=== PATIENT | male | born 1955 | race Caucasian/White ===

== ENCOUNTER 2016-12-14 08:47 | Outpatient (CLI) | payer OTHER | END 2016-12-14 08:48 | disposition home or self-care (01) | DX: R73.01 Impaired fasting glucose (principal); I25.10 Atherosclerotic heart disease of native coronary artery without angina pectoris; I10 Essential (primary) hypertension; M51.86 Other intervertebral disc disorders, lumbar region ==

== ENCOUNTER 2017-07-27 09:02 | Outpatient (CLI) | payer OTHER ==
[2017-07-27 09:51] LABS: ALBUMIN/GLOBULIN RATIO 1.3 (1.0-2.2); CALCIUM 9.4 mg/dL (8.5-10.3); CREATININE 0.7 mg/dL (0.6-1.2); POTASSIUM 3.8 mmol/L (3.5-5.0); TOTAL PROTEIN 7.5 g/dL (6.7-8.2)
[2017-07-27 09:57] LABS: HEMOGLOBIN A1C 0.55 g/dL
== END 2017-07-27 09:03 | disposition home or self-care (01) ==
LOC: LAB 09:02
PROVIDERS: ATTEND Family Medicine
DX: K76.0 Fatty (change of) liver, not elsewhere classified (principal); R73.01 Impaired fasting glucose; I25.10 Atherosclerotic heart disease of native coronary artery without angina pectoris; I10 Essential (primary) hypertension; E78.9 Disorder of lipoprotein metabolism, unspecified; M51.86 Other intervertebral disc disorders, lumbar region; Z12.5 Encounter for screening for malignant neoplasm of prostate
CPT/HCPCS: 36415; 80053; 83036; 84153

== ENCOUNTER 2018-10-09 08:47 | Outpatient (CLI) | payer OTHER ==
[2018-10-09 09:27] LABS: BASOPHILS % (AUTO) 0.2 %; EOSINOPHILS # (AUTO) 0.1 10^3/uL (0.0-0.7); EOSINOPHILS % (AUTO) 3.2 %; HGB - HEMOGLOBIN 14.1 g/dL (14.0-18.0); LYMPHOCYTES % (AUTO) 42.2 %; MEAN CORPUSCULAR HEMOGLOBIN 35.8 pg (27.0-31.0); MEAN CORPUSCULAR HGB CONC 34.5 g/dL (32.0-36.0); MEAN CORPUSCULAR VOLUME 103.8 fL (80.0-94.0); MEAN PLATELET VOLUME 7.9 fL (7.4-11.4); MONOCYTES # (AUTO) 0.4 10^3/uL (0.0-1.0); MONOCYTES % (AUTO) 9.2 %; NEUTROPHILS # (AUTO) 2.1 10^3/uL (1.5-6.6); NEUTROPHILS % (AUTO) 45.2 %; PLT - PLATELET COUNT 152 10^3/uL (130-450); RED BLOOD COUNT 3.92 10^6/uL (4.70-6.10); WHITE BLOOD COUNT 4.7 x10^3/uL (4.8-10.8)
[2018-10-09 09:50] LABS: ALBUMIN 4.3 g/dL (3.2-5.5); ALBUMIN/GLOBULIN RATIO 1.4 (1.0-2.2); ALKALINE PHOSPHATASE 63 IU/L (42-121); ALT ALANINE AMINOTRANSFERASE 49 IU/L (10-60); AST ASPARTATE AMINOTRANSFERASE 53 IU/L (10-42); BILIRUBIN,TOTAL 1.1 mg/dL (0.2-1.0); BUN - BLOOD UREA NITROGEN 9 mg/dL (6-20); CALCIUM 9.1 mg/dL (8.5-10.3); CARBON DIOXIDE - CO2 30 mmol/L (21-32); CHLORIDE 100 mmol/L (101-111); CHOL/HDL RATIO 1.7 (<5.0); CHOLESTEROL 155 mg/dL; CREATININE 0.9 mg/dL (0.6-1.2); GFR - MDRD 86 (>89); GLUCOSE 112 mg/dL (70-100); HDL CHOLESTEROL 89 mg/dL; LDL CHOLESTEROL,CALCULATED 30 mg/dL; LDL/HDL RATIO 0.3 (<3.6); SODIUM 139 mmol/L (135-145); TOTAL PROTEIN 7.3 g/dL (6.7-8.2); VLDL CHOLESTEROL 36 mg/dL
== END 2018-10-09 08:48 | disposition home or self-care (01) ==
LOC: LAB 08:47
PROVIDERS: ATTEND Physician Assistant Medical
DX: Z00.00 Encounter for general adult medical examination without abnormal findings (principal); I10 Essential (primary) hypertension; K76.0 Fatty (change of) liver, not elsewhere classified; E78.9 Disorder of lipoprotein metabolism, unspecified; Z12.5 Encounter for screening for malignant neoplasm of prostate; J01.90 Acute sinusitis, unspecified
CPT/HCPCS: 36415; 80053; 80061; 83721; 84153; 84443; 85025

== ENCOUNTER 2020-07-29 08:33 | Outpatient (CLI) | payer OTHER ==
[2020-07-29 09:06] LABS: BASOPHILS % (AUTO) 0.5 %; EOSINOPHILS # (AUTO) 0.1 10^3/uL (0.0-0.7); EOSINOPHILS % (AUTO) 3.8 %; HGB - HEMOGLOBIN 13.2 g/dL (14.0-18.0); LYMPHOCYTES # (AUTO) 1.7 10^3/uL (1.5-3.5); LYMPHOCYTES % (AUTO) 47.5 %; MEAN CORPUSCULAR HEMOGLOBIN 36.2 pg (27.0-31.0); MEAN CORPUSCULAR HGB CONC 33.9 g/dL (32.0-36.0); MEAN CORPUSCULAR VOLUME 106.6 fL (80.0-94.0); MEAN PLATELET VOLUME 8.9 fL (7.4-11.4); MONOCYTES # (AUTO) 0.4 10^3/uL (0.0-1.0); MONOCYTES % (AUTO) 11.8 %; NEUTROPHILS # (AUTO) 1.3 10^3/uL (1.5-6.6); NEUTROPHILS % (AUTO) 36.4 %; PLT - PLATELET COUNT 141 10^3/uL (130-450); RED BLOOD COUNT 3.65 10^6/uL (4.70-6.10); RED CELL DISTRIBUTION WIDTH 13.3 % (12.0-15.0); WHITE BLOOD COUNT 3.6 x10^3/uL (4.8-10.8)
[2020-07-29 09:27] LABS: ALBUMIN/GLOBULIN RATIO 1.3 (1.0-2.2); ALKALINE PHOSPHATASE 48 IU/L (42-121); ALT ALANINE AMINOTRANSFERASE 87 IU/L (10-60); AST ASPARTATE AMINOTRANSFERASE 86 IU/L (10-42); BILIRUBIN,TOTAL 1.1 mg/dL (0.2-1.0); BUN - BLOOD UREA NITROGEN 7 mg/dL (6-20); CALCIUM 9.1 mg/dL (8.5-10.3); CARBON DIOXIDE - CO2 26 mmol/L (21-32); CHLORIDE 100 mmol/L (101-111); CHOL/HDL RATIO 1.8 (<5.0); CHOLESTEROL 192 mg/dL; CREATININE 0.9 mg/dL (0.6-1.2); GLUCOSE 129 mg/dL (70-100); HDL CHOLESTEROL 106 mg/dL; LDL CHOLESTEROL,CALCULATED 52 mg/dL; LDL/HDL RATIO 0.5 (<3.6); SODIUM 137 mmol/L (135-145); TOTAL PROTEIN 7.2 g/dL (6.7-8.2); VLDL CHOLESTEROL 34 mg/dL
[2020-07-29 11:53] LABS: HEMOGLOBIN A1c% 5.8 % (4.27-6.07)
== END 2020-07-29 08:34 | disposition home or self-care (01) ==
LOC: LAB 08:33
PROVIDERS: ATTEND Family Medicine
DX: R73.01 Impaired fasting glucose (principal); I10 Essential (primary) hypertension; E78.5 Hyperlipidemia, unspecified
CPT/HCPCS: 36415; 80053; 80061; 83036; 83721; 84153; 84443; 85025

== ENCOUNTER 2020-08-26 10:57 | Outpatient (CLI) | payer OTHER ==
[2020-08-26 11:25] LABS: ALBUMIN 3.8 g/dL (3.2-5.5); ALBUMIN/GLOBULIN RATIO 1.2 (1.0-2.2); BILIRUBIN,TOTAL 0.6 mg/dL (0.2-1.0); CALCIUM 9.2 mg/dL (8.5-10.3); CREATININE 0.8 mg/dL (0.6-1.2); TOTAL PROTEIN 7.1 g/dL (6.7-8.2)
== END 2020-08-26 10:58 | disposition home or self-care (01) ==
LOC: LAB 10:57
PROVIDERS: ATTEND Family Medicine
DX: R79.89 Other specified abnormal findings of blood chemistry (principal); F10.20 Alcohol dependence, uncomplicated
CPT/HCPCS: 36415; 80053; 82105

== ENCOUNTER 2020-09-07 09:05 | Outpatient (CLI) | payer OTHER ==
--- NOTE | 2020-09-07 11:55 | Ultrasound Report ---
PROCEDURE: Abdomen Limited INDICATIONS: FATTY LIVER DISEASE, ALCOHOLISM TECHNIQUE: Real-time scanning was performed of the abdominal and retroperitoneal organs, with image documentatio n. COMPARISON: 04/20/2015 FINDINGS: Liver: Liver is slightly elongated measuring 17.0 cm in length, somewhat increased compared to the p rior study. Hepatic echotexture is mildly hyperechoic and heterogeneous. A 9 mm cyst is present anter iorly in the left hepatic lobe, stable. No new solid masses. Gallbladder: The gallbladder is normal without stones, sludge, wall thickening, or pericholecystic fl uid. Biliary ducts: Intrahepatic bile ducts are non-dilated. Extrahepatic bile duct caliber measures 4 m m. Normal is 6-7 mm or less in diameter, or 10 mm or less post-cholecystectomy. Pancreas: The pancreas is diminutive and mildly heterogeneous, similar compared to the prior study. N o ductal dilatation. The tail is obscured by bowel gas. Kidneys: Right kidney measures 11.2 cm long. No hydronephrosis or nephrolithiasis. No solid masses . Miscellaneous: No free abdominal fluid. IMPRESSION: 1. Heterogeneous hepatic echotexture may indicate steatosis or other intrinsic liver disease. The cherelle er has a slightly enlarged since the prior study but remains similarly heterogeneous in parenchymal e chotexture. 2. Heterogeneous and diminutive pancreas, again, nonspecific. Reviewed by: Meredith Hamilton MD on 09/07/2020 11:53 AM PST Approved by: Meredith Hamilton MD on 09/07/2020 11:53 AM PST Station ID: [id number]
== END 2020-09-07 09:06 | disposition home or self-care (01) ==
LOC: DI 09:05
PROVIDERS: ATTEND Family Medicine
DX: K76.0 Fatty (change of) liver, not elsewhere classified (principal); F10.20 Alcohol dependence, uncomplicated
CPT/HCPCS: 76705

== ENCOUNTER 2020-10-22 13:29 | Outpatient (CLI) | payer OTHER ==
--- NOTE | 2020-10-22 14:57 | XRAY Report ---
PROCEDURE: Hand 3 View LT INDICATIONS: PAIN IN LEFT THUMB TECHNIQUE: 3 views of the hand(s) acquired. COMPARISON: None FINDINGS: Bones: No fractures or dislocations. There is asymmetric joint space loss, marginal spurring, and mi nor subluxation at the first MCP joint. No suspicious bony lesions. Soft tissues: No suspicious soft tissue calcifications. IMPRESSION: 1. Mild arthritic changes at the first metacarpal phalangeal joint. Reviewed by: Merdeith Hamilton MD on 10/22/2020 2:56 PM PST Approved by: Meredith Hamilton MD on 10/22/2020 2:56 PM PST Station ID: [id number]
--- NOTE | 2020-10-22 15:00 | XRAY Report ---
PROCEDURE: Hips 3-4V BILAT INDICATIONS: CHRONIC HIP PAIN TECHNIQUE: 2 views of each hip were acquired. COMPARISON: None FINDINGS: Bones: No fractures or dislocations. Minor degenerative joint space loss in each hip. Incidental no te is made of severe asymmetric right-sided disc space loss and endplate change at the L4-5 lumbar le vels. No suspicious bony lesions. The visualized pelvic ring appears intact. Soft tissues: No suspicious soft tissue calcifications or masses. Mild vascular calcification. IMPRESSION: 1. Minor symmetric degenerative changes in each hip joint. 2. Severe disc degeneration visible in the low lumbar spine. Reviewed by: Meredith Hamilton MD on 10/22/2020 2:58 PM PST Approved by: Meredith Hamilton MD on 10/22/2020 2:58 PM PST Station ID: [id number]
== END 2020-10-22 13:30 | disposition home or self-care (01) ==
LOC: DI 13:29
PROVIDERS: ATTEND Internal Medicine
DX: M18.12 Unilateral primary osteoarthritis of first carpometacarpal joint, left hand (principal); M16.0 Bilateral primary osteoarthritis of hip

== ENCOUNTER 2021-02-17 09:06 | Outpatient (CLI) | payer MEDICARE, OTHER ==
[2021-02-17 09:24] LABS: BASOPHILS % (AUTO) 0.5 %; EOSINOPHILS # (AUTO) 0.2 10^3/uL (0.0-0.7); EOSINOPHILS % (AUTO) 5.5 %; HCT - HEMATOCRIT 37.4 % (42.0-52.0); HGB - HEMOGLOBIN 12.3 g/dL (14.0-18.0); LYMPHOCYTES # (AUTO) 1.8 10^3/uL (1.5-3.5); LYMPHOCYTES % (AUTO) 48.5 %; MEAN CORPUSCULAR HEMOGLOBIN 35.9 pg (27.0-31.0); MEAN CORPUSCULAR HGB CONC 32.9 g/dL (32.0-36.0); MEAN PLATELET VOLUME 9.5 fL (7.4-11.4); MONOCYTES # (AUTO) 0.3 10^3/uL (0.0-1.0); NEUTROPHILS # (AUTO) 1.3 10^3/uL (1.5-6.6); NEUTROPHILS % (AUTO) 36.2 %; PLT - PLATELET COUNT 116 10^3/uL (130-450); RED BLOOD COUNT 3.43 10^6/uL (4.70-6.10); RED CELL DISTRIBUTION WIDTH 14.8 % (12.0-15.0); WHITE BLOOD COUNT 3.7 x10^3/uL (4.8-10.8)
[2021-02-17 09:56] LABS: THYROID STIMULATING HORMONE 1.17 uIU/mL (0.34-5.60)
[2021-02-17 10:06] LABS: ALBUMIN/GLOBULIN RATIO 1.3 (1.0-2.2); ALKALINE PHOSPHATASE 62 IU/L (42-121); ALT ALANINE AMINOTRANSFERASE 73 IU/L (10-60); AST ASPARTATE AMINOTRANSFERASE 104 IU/L (10-42); BILIRUBIN,TOTAL 0.6 mg/dL (0.2-1.0); BUN - BLOOD UREA NITROGEN 12 mg/dL (6-20); CALCIUM 8.8 mg/dL (8.5-10.3); CARBON DIOXIDE - CO2 26 mmol/L (21-32); CHLORIDE 101 mmol/L (101-111); CHOL/HDL RATIO 1.6 (<5.0); CHOLESTEROL 215 mg/dL; CREATININE 0.8 mg/dL (0.6-1.2); GFR - MDRD 97 (>89); GLUCOSE 97 mg/dL (70-100); HDL CHOLESTEROL 132 mg/dL; LDL CHOLESTEROL,CALCULATED 38 mg/dL; LDL/HDL RATIO 0.3 (<3.6); POTASSIUM 3.7 mmol/L (3.5-5.0); SODIUM 141 mmol/L (135-145); TOTAL PROTEIN 7.2 g/dL (6.7-8.2); TRIGLYCERIDES 226 mg/dL; VLDL CHOLESTEROL 45 mg/dL
== END 2021-02-17 09:07 | disposition home or self-care (01) ==
LOC: LAB 09:06
PROVIDERS: ATTEND Internal Medicine
DX: K70.10 Alcoholic hepatitis without ascites (principal); R79.89 Other specified abnormal findings of blood chemistry; K76.0 Fatty (change of) liver, not elsewhere classified; R73.01 Impaired fasting glucose; E78.5 Hyperlipidemia, unspecified
CPT/HCPCS: 36415; 80053; 80061; 82105; 83721; 84153; 84443; 85025

== ENCOUNTER 2021-03-15 12:06 | Outpatient (CLI) | payer OTHER ==
--- NOTE | 2021-03-15 14:23 | MRI Report ---
PROCEDURE: Brain W/O INDICATIONS: MEMORY IMPAIRMENT TECHNIQUE: Noncontrast axial T1 spin echo, axial T2 fast spin echo, sagittal and axial FLAIR, coronal T2 fast sp in echo, axial gradient echo, axial diffusion and ADC through the brain. COMPARISON: None. FINDINGS: Image quality: Excellent. CSF Spaces: Basal cisterns are patent. No extra-axial fluid collections. Ventricles are normal in size and shape. Brain: No intracranial masses or hemorrhage. Mcclain/white matter interface is normal. Brainstem appe ars normal. Age-appropriate brain parenchymal volume loss and chronic small vessel ischemic change ca n be seen. Diffusion-weighted images demonstrate no acute ischemic insult. No chronic ischemic ins ults. Normal intravascular flow voids are present. Skull and face: Calvarium has normal marrow signal. Orbits appear normal. Sinuses: There is a small mucous retention cyst seen involving the inferior aspect of the right maxi llary sinus. Sinuses and mastoids are otherwise clear. IMPRESSION: Brain MRI study within normal limits for age. Reviewed by: Desmnod Lainez MD on 03/15/2021 1:21 PM JULIANNE Approved by: Desmond Lainez MD on 03/15/2021 1:21 PM JULIANNE Station ID: [id number]
== END 2021-03-15 12:07 | disposition home or self-care (01) ==
LOC: DI 12:06
PROVIDERS: ATTEND Internal Medicine
DX: R41.3 Other amnesia (principal)

== ENCOUNTER 2021-06-30 07:56 | Day surgery (SDC) | payer MEDICARE, OTHER ==
[2021-06-30] MEDS ORDERED: CEFAZOLIN SODIUM IN 0.9 % NACL 2 GM/100 ML BAG IV ONE (08:05)
[2021-06-30 08:31] LABS: BASOPHILS % (AUTO) 0.8 %; EOSINOPHILS # (AUTO) 0.2 10^3/uL (0.0-0.7); EOSINOPHILS % (AUTO) 4.2 %; HCT - HEMATOCRIT 36.2 % (42.0-52.0); HGB - HEMOGLOBIN 12.6 g/dL (14.0-18.0); LYMPHOCYTES # (AUTO) 1.7 10^3/uL (1.5-3.5); LYMPHOCYTES % (AUTO) 44.3 %; MEAN CORPUSCULAR HEMOGLOBIN 36.8 pg (27.0-31.0); MEAN CORPUSCULAR HGB CONC 34.8 g/dL (32.0-36.0); MEAN CORPUSCULAR VOLUME 105.8 fL (80.0-94.0); MEAN PLATELET VOLUME 9.2 fL (7.4-11.4); MONOCYTES # (AUTO) 0.4 10^3/uL (0.0-1.0); NEUTROPHILS # (AUTO) 1.5 10^3/uL (1.5-6.6); NEUTROPHILS % (AUTO) 40.4 %; PLT - PLATELET COUNT 135 10^3/uL (130-450); RED BLOOD COUNT 3.42 10^6/uL (4.70-6.10); RED CELL DISTRIBUTION WIDTH 13.3 % (12.0-15.0); WHITE BLOOD COUNT 3.8 x10^3/uL (4.8-10.8)
[2021-06-30] MEDS ORDERED: LIDOCAINE 1% 50 ML MDV ONE (08:47)
[2021-06-30] MEDS ORDERED: BUPIVACAINE 0.25% PF 30 ML VIAL ONE ×2 (08:47→09:40)
--- NOTE | 2021-06-30 08:50 | ANESTHESIA ---
Pre-Anesthesia VS, & Labs - Diagnosis ventral hernia - Procedure open repair of ventral hernia Vital Signs: Temp Pulse Resp BP Pulse Ox 36.6 C 83 16 145/88 H 96 06/30/21 08:17 06/30/21 08:17 06/30/21 08:17 06/30/21 08:17 06/30/21 08:17 Height: 6 ft 1 in Weight (kg): 89.2 kg Body Mass Index: 25.9 BMI Classification: Overweight - NPO >8 hours - Lab Results Current Lab Results: Laboratory Tests 06/30/21 08:25: WBC 3.8 L, RBC 3.42 L, Hgb 12.6 L, Hct 36.2 L, MCV 105.8 H, MCH 36.8 H, MCHC 34.8, RDW 13.3, Plt Count 135, MPV 9.2, Neut # (Auto) 1.5, Lymph # (Auto) 1.7, Hitchcock # (Auto) 0.4, Eos # (Auto) 0.2, Baso # (Auto) 0.0, Absolute Nucleated RBC 0.00, Nucleated RBC % 0.0 Fish Bones: 06/30/21 08:25 Home Medications and Allergies Home Medications: Ambulatory Orders Aspirin [Aspirin EC] 81 mg PO DAILY 06/28/21 Atorvastatin [Lipitor] 20 mg PO QPM 06/28/21 Lisinopril [Zestril] 10 mg PO DAILY 06/28/21 Multivitamin 1 each PO DAILY 06/28/21 Cypress-3/Dha/Epa/Fish Oil [Fish Oil 1,000 mg Softgel] 4 each PO DAILY 06/28/21 Omeprazole 20 mg PO DAILY 06/28/21 Turmeric Root Extract [Turmeric] 500 mg PO DAILY 06/28/21 buPROPion HCL [Bupropion HCl Sr] 150 mg PO BID 06/28/21 dilTIAZem HCL [Diltiazem 24Hr ER (Xr)] 240 mg PO DAILY 06/28/21 diphenhydrAMINE [Benadryl] 25 mg PO Q4-6H PRN 06/28/21 flaxseed oiL [Flaxseed Oil] 3,000 mg PO DAILY 06/28/21 Aspirin [Aspirin EC] 81 mg PO DAILY 06/28/21 Atorvastatin [Lipitor] 20 mg PO QPM 06/28/21 Lisinopril [Zestril] 10 mg PO DAILY 06/28/21 Multivitamin 1 each PO DAILY 06/28/21 [place]-3/Dha/Epa/Fish Oil [Fish Oil 1,000 mg Softgel] 4 each PO DAILY 06/28/21 Omeprazole 20 mg PO DAILY 06/28/21 Turmeric Root Extract [Turmeric] 500 mg PO DAILY 06/28/21 buPROPion HCL [Bupropion HCl Sr] 150 mg PO BID 06/28/21 dilTIAZem HCL [Diltiazem 24Hr ER (Xr)] 240 mg PO DAILY 06/28/21 diphenhydrAMINE [Benadryl] 25 mg PO Q4-6H PRN 06/28/21 flaxseed oiL [Flaxseed Oil] 3,000 mg PO DAILY 06/28/21 Allergies/Adverse Reactions: Allergies Allergy/AdvReac Type Severity Reaction Status Date / Time erythromycin base AdvReac stomach Verified 06/28/21 11:36 pain Anes History & Medical History - Anesthetic History Family history of Anesthesia Complications: Denies Family history of Malignant Hyperthermia: Denies - Medical History Cardiovascular: reports: Hypertension, High cholesterol Pulmonary: reports: None Gastrointestinal: reports: None Urinary: reports: None Neuro: reports: None Musculoskeletal: reports: Osteoarthritis Endocrine/Autoimmune: reports: None Blood Disorders: reports: None Skin: reports: None Smoking Status: Former smoker (Quit 2 weeks ago. 50 year pack history) Psychosocial: reports: Alcohol (2 drinks per day), Cannabis (twice per week) History of Cancer?: No - Surgical History General: reports: Colonoscopy Exam General: Alert, Oriented x3, Cooperative Dental: Dentures full Upper, Dentures full Lower Mouth Openin Fingerbreadth Neck Mobility: Normal Mallampati classification: II Thyromental Distance: 4-6 cm Respiratory: Lungs clear, Normal breath sounds, No respiratory distress, No accessory muscle use Cardiovascular: Regular rate, Normal S1, Normal S2, No murmurs Mental/Cognitive Status: Alert/Oriented X3, Normal for patient Plan Anesthesia Type: General Consent for Procedure(s) Verified and Reviewed: Yes Code Status: Attempt Resuscitation ASA classification: 2-Mild systemic disease Is this case an emergency?: No
[2021-06-30] MEDS ORDERED: BUPIVACAINE 0.25% PF 30 ML VIAL SUBQ ONE ×2 (08:53)
[2021-06-30] MEDS ORDERED: LIDOCAINE 1% 50 ML MDV SUBQ ONE ×2 (08:54)
[2021-06-30] MEDS ORDERED: LIDOCAINE-MPF 2% 5 ML VIAL ONE (09:07)
[2021-06-30] MEDS ORDERED: fentaNYL 100 MCG/2 ML VIAL ONE (09:07)
[2021-06-30] MEDS ORDERED: MIDAZOLAM 2 MG/2 ML VIAL ONE (09:07)
[2021-06-30] MEDS ORDERED: PROPOFOL 200 MG/20 ML VIAL IVP ONE (09:07)
[2021-06-30 09:10] LABS: ALBUMIN/GLOBULIN RATIO 1.2 (1.0-2.2); BILIRUBIN,TOTAL 0.9 mg/dL (0.2-1.0); CALCIUM 9.2 mg/dL (8.5-10.3); CREATININE 0.9 mg/dL (0.6-1.2); POTASSIUM 3.9 mmol/L (3.5-5.0); TOTAL PROTEIN 7.3 g/dL (6.7-8.2)
[2021-06-30] MEDS ORDERED: ePHEDrine 50 MG/ML VIAL IVP PRN (10:02)
[2021-06-30] MEDS ORDERED: MORPHINE 2 MG/ML CARPUJECT IVP PRN (10:02)
[2021-06-30] MEDS ORDERED: NALOXONE 0.4 MG/ML VIAL IVP PRN (10:02)
[2021-06-30] MEDS ORDERED: ONDANSETRON 4 MG/2 ML VIAL IVP PRN ×2 (10:02→10:22)
[2021-06-30] MEDS ORDERED: HYDROmorphone 0.5 MG/0.5 ML SYRINGE IVP PRN ×2 (10:02→10:22)
[2021-06-30] MEDS ORDERED: ATROPINE ABBOJECT 1 MG/10 ML SYRINGE IVP PRN (10:02)
[2021-06-30] MEDS ORDERED: fentaNYL 100 MCG/2 ML VIAL IVP PRN (10:02)
[2021-06-30] MEDS ORDERED: SUGAMMADEX 200 MG/2 ML VIAL IVP ONE (10:07)
[2021-06-30] MEDS ORDERED: ROCURONIUM 50 MG/5 ML VIAL ONE (10:11)
[2021-06-30] MEDS ORDERED: DEXAMETHASONE 4 MG/ML VIAL ONE (10:12)
[2021-06-30] MEDS ORDERED: HYDROcod/ACETAM 5/325 MG TABLET PO PRN (10:22)
--- NOTE | 2021-06-30 10:29 | OPERATIVE REPORT ---
Operative Report - General Procedure Date: 06/30/21 Planned Procedure: umbilical hernia repair with mesh Pre-Op Diagnosis: umbilical hernia Procedure Performed: umbilical hernia repair with mesh Post Op Diagnosis: umbilical hernia - Procedure Note Primary Surgeon: griselda huerta md Anesthesia Technique: General ET tube, Local Pathology: none Estimated Blood Loss (mL): 0 Drain/Tube Type: Other (none) Indications: pain Findings: 2.5 cm defect Complications: none - Other Other Information/Narrative: The patient was properly identified brought to the operating room and placed in supine position. Sequential compression devices were placed. General anesthesia was induced. The patient was prepped and draped in a sterile fashion and given preoperative antibiotics. Local anesthetic was given throughout the procedure. An supraumbilical incision was made and extended left lateral of the umbilicus. Dissection proceeded sharply. Subcutaneous tissue was mobilized away from the fascial defect by 2 to 3 cm in all directions. Umbilical skin was sharply excised away from the hernia sac or peritoneum. The peritoneum was then carefully released from the fascial defect edge with cutting current cautery. A preperitoneal space was developed for mesh placement. Polypropylene mesh was cut to size approximately 2 x 3 inches and placed preperitoneal. The mesh was secured with 9 interrupted 0 Ethibond sutures. The fascia was closed over the mesh with 4 interrupted O ethibonds. The mesh lay in good position without tension. Subcutaneous tissue was reapproximated with interrupted 2-0 Vicryl suture. Umbilical skin was tacked back down to fascia with interrupted 2-0 Vicryl suture. Buried interrupted subdermal 3-0 Vicryl sutures were then placed. Skin was closed with a running 4-0 Monocryl subcuticular suture. Dressing was applied. Patient tolerated the procedure the procedure well was awakened and brought to recovery in good condition.
[2021-06-30] MEDS ORDERED: LACTATED RINGERS 1,000 ML IV ONE (10:57)
[2021-06-30] MEDS ORDERED: LACTATED RINGERS 1,000 ML IV SCH (11:00)
[2021-06-30] MEDS ORDERED: HYDROcod/ACETAM 5/325 MG TABLET ONE (11:08)
[2021-06-30 11:23] VITALS: BP 133/88
--- NOTE | 2021-06-30 14:13 | ANESTHESIA POST OP EVALUATION ---
Anesthesia Post Eval - Post Anesthesia Eval Vitals: Last Vital Signs Temp 37.1 C 06/30/21 11:22 Pulse 65 06/30/21 11:22 Resp 15 06/30/21 11:22 BP 133/88 H 06/30/21 11:22 Pulse Ox 94 06/30/21 11:22 CV Function Including HR & BP: Stable Pain Control: Satisfactory Nausea & Vomiting: Negative Mental Status: Baseline Respiratory Status: Airway Patent Hydration Status: Satisfactory Anesthesia Complications: None
== END 2021-06-30 07:57 | disposition home or self-care (01) ==
LOC: SDS 07:56
PROVIDERS: ATTEND Surgery
DX: K42.0 Umbilical hernia with obstruction, without gangrene (principal); I25.10 Atherosclerotic heart disease of native coronary artery without angina pectoris; F17.210 Nicotine dependence, cigarettes, uncomplicated
CPT/HCPCS: 49587; 80053; 85025; 93005; A9270; C1781; J0690; J7120

== ENCOUNTER 2021-10-08 09:06 | Outpatient (CLI) | payer MEDICARE, OTHER ==
[2021-10-08 09:29] LABS: BASOPHILS % (AUTO) 0.7 %; EOSINOPHILS # (AUTO) 0.3 10^3/uL (0.0-0.7); EOSINOPHILS % (AUTO) 4.4 %; HGB - HEMOGLOBIN 11.9 g/dL (14.0-18.0); LYMPHOCYTES # (AUTO) 1.4 10^3/uL (1.5-3.5); LYMPHOCYTES % (AUTO) 24.3 %; MEAN CORPUSCULAR HEMOGLOBIN 35.8 pg (27.0-31.0); MEAN CORPUSCULAR VOLUME 105.4 fL (80.0-94.0); MEAN PLATELET VOLUME 9.3 fL (7.4-11.4); MONOCYTES # (AUTO) 0.7 10^3/uL (0.0-1.0); MONOCYTES % (AUTO) 11.6 %; NEUTROPHILS # (AUTO) 3.5 10^3/uL (1.5-6.6); NEUTROPHILS % (AUTO) 58.8 %; PLT - PLATELET COUNT 150 10^3/uL (130-450); RED BLOOD COUNT 3.32 10^6/uL (4.70-6.10); WHITE BLOOD COUNT 5.9 x10^3/uL (4.8-10.8)
[2021-10-08 09:52] LABS: ALBUMIN 4.2 g/dL (3.2-5.5); ALBUMIN/GLOBULIN RATIO 1.3 (1.0-2.2); BILIRUBIN,TOTAL 0.9 mg/dL (0.2-1.0); CREATININE 0.8 mg/dL (0.6-1.2); POTASSIUM 3.5 mmol/L (3.5-5.0); TOTAL PROTEIN 7.4 g/dL (6.7-8.2)
[2021-10-08 10:08] LABS: FERRITIN 392.5 ng/mL (23.9-336.2)
[2021-10-08 10:51] LABS: ESTIMATED AVERAGE GLUCOSE 105 mg/dL (70-100); HEMOGLOBIN A1c% 5.3 % (4.27-6.07)
[2021-10-09 10:32] LABS: HEPATITIS C ANTIBODY NON-REACTIVE (NON-REACTIVE)
== END 2021-10-08 09:07 | disposition home or self-care (01) ==
LOC: LAB 09:06
PROVIDERS: ATTEND Internal Medicine
DX: K76.0 Fatty (change of) liver, not elsewhere classified (principal); D64.9 Anemia, unspecified; R73.01 Impaired fasting glucose
CPT/HCPCS: 36415; 80053; 82607; 82728; 83036; 83540; 84466; 85025; 86317; 86704; 86803

== ENCOUNTER 2022-01-19 12:25 | Outpatient (CLI) | payer MEDICARE, OTHER ==
[2022-01-19 12:45] LABS: BASOPHILS % (AUTO) 0.8 %; EOSINOPHILS # (AUTO) 0.2 10^3/uL (0.0-0.7); EOSINOPHILS % (AUTO) 5.9 %; HCT - HEMATOCRIT 35.1 % (42.0-52.0); HGB - HEMOGLOBIN 12.1 g/dL (14.0-18.0); LYMPHOCYTES # (AUTO) 1.6 10^3/uL (1.5-3.5); LYMPHOCYTES % (AUTO) 39.7 %; MEAN CORPUSCULAR HEMOGLOBIN 36.6 pg (27.0-31.0); MEAN CORPUSCULAR HGB CONC 34.5 g/dL (32.0-36.0); MONOCYTES # (AUTO) 0.5 10^3/uL (0.0-1.0); MONOCYTES % (AUTO) 12.7 %; NEUTROPHILS # (AUTO) 1.6 10^3/uL (1.5-6.6); NEUTROPHILS % (AUTO) 40.9 %; PLT - PLATELET COUNT 146 10^3/uL (130-450); RED BLOOD COUNT 3.31 10^6/uL (4.70-6.10); WHITE BLOOD COUNT 3.9 x10^3/uL (4.8-10.8)
[2022-01-19 13:34] LABS: ALBUMIN 4.2 g/dL (3.2-5.5); ALBUMIN/GLOBULIN RATIO 1.2 (1.0-2.2); ALKALINE PHOSPHATASE 50 IU/L (42-121); ALT ALANINE AMINOTRANSFERASE 74 IU/L (10-60); AST ASPARTATE AMINOTRANSFERASE 125 IU/L (10-42); BILIRUBIN,TOTAL 0.8 mg/dL (0.2-1.0); BUN - BLOOD UREA NITROGEN 13 mg/dL (6-20); CALCIUM 9.3 mg/dL (8.5-10.3); CARBON DIOXIDE - CO2 28 mmol/L (21-32); CHLORIDE 99 mmol/L (101-111); CHOL/HDL RATIO 1.8 (<5.0); CHOLESTEROL 227 mg/dL; CREATININE 0.9 mg/dL (0.6-1.2); GFR - MDRD 84 (>89); GLUCOSE 116 mg/dL (70-100); HDL CHOLESTEROL 128 mg/dL; LDL CHOLESTEROL,CALCULATED 58 mg/dL; LDL/HDL RATIO 0.5 (<3.6); POTASSIUM 4.2 mmol/L (3.5-5.0); SODIUM 141 mmol/L (135-145); TOTAL PROTEIN 7.6 g/dL (6.7-8.2); TRIGLYCERIDES 205 mg/dL; VLDL CHOLESTEROL 41 mg/dL
== END 2022-01-19 12:26 | disposition home or self-care (01) ==
LOC: LAB 12:25
PROVIDERS: ATTEND Internal Medicine
DX: K70.0 Alcoholic fatty liver (principal); E78.5 Hyperlipidemia, unspecified; D53.9 Nutritional anemia, unspecified; Z12.5 Encounter for screening for malignant neoplasm of prostate
CPT/HCPCS: 36415; 80053; 80061; 82105; 82607; 85025; G0103; 81599; 83721; 84153

== ENCOUNTER 2023-05-19 08:54 | Outpatient (CLI) | payer MEDICARE, OTHER | END 2023-05-19 08:55 | disposition home or self-care (01) | LOC: DI 08:54 | PROVIDERS: ATTEND Internal Medicine | DX: Z53.9 Procedure and treatment not carried out, unspecified reason (principal) ==

== ENCOUNTER 2023-06-30 08:58 | Outpatient (CLI) | payer MEDICARE, OTHER ==
[2023-06-30 09:31] LABS: BASOPHILS % (AUTO) 0.3 %; EOSINOPHILS # (AUTO) 0.4 10^3/uL (0.0-0.7); EOSINOPHILS % (AUTO) 5.1 %; HCT - HEMATOCRIT 36.6 % (42.0-52.0); HGB - HEMOGLOBIN 12.2 g/dL (14.0-18.0); LYMPHOCYTES # (AUTO) 1.6 10^3/uL (1.5-3.5); MEAN CORPUSCULAR HEMOGLOBIN 35.1 pg (27.0-31.0); MEAN CORPUSCULAR HGB CONC 33.3 g/dL (32.0-36.0); MEAN CORPUSCULAR VOLUME 105.2 fL (80.0-94.0); MEAN PLATELET VOLUME 9.5 fL (7.4-11.4); MONOCYTES # (AUTO) 0.7 10^3/uL (0.0-1.0); MONOCYTES % (AUTO) 9.3 %; NEUTROPHILS # (AUTO) 4.6 10^3/uL (1.5-6.6); PLT - PLATELET COUNT 131 10^3/uL (130-450); RED BLOOD COUNT 3.48 10^6/uL (4.70-6.10); RED CELL DISTRIBUTION WIDTH 14.5 % (12.0-15.0); WHITE BLOOD COUNT 7.3 x10^3/uL (4.8-10.8)
[2023-06-30 09:53] LABS: CREATININE,URINE 159.3 mg/dL; MICROALBUM/CREATININE RATIO,UR 17.6 ug/mg (<30.0); MICROALBUMIN,URINE 2.8 mg/dL
[2023-06-30 10:09] LABS: THYROID STIMULATING HORMONE 1.32 uIU/mL (0.34-5.60)
[2023-06-30 10:54] LABS: ALBUMIN 4.4 g/dL (3.2-5.5); ALBUMIN/GLOBULIN RATIO 1.3 (1.0-2.2); ALKALINE PHOSPHATASE 57 IU/L (42-121); ALT ALANINE AMINOTRANSFERASE 32 IU/L (10-60); AST ASPARTATE AMINOTRANSFERASE 30 IU/L (10-42); BILIRUBIN,TOTAL 0.5 mg/dL (0.2-1.0); BUN - BLOOD UREA NITROGEN 14 mg/dL (6-20); CALCIUM 9.7 mg/dL (8.5-10.3); CARBON DIOXIDE - CO2 25 mmol/L (21-32); CHLORIDE 102 mmol/L (101-111); CHOL/HDL RATIO 1.6 (<5.0); CHOLESTEROL 206 mg/dL; GFR - MDRD 75 (>89); GLUCOSE 103 mg/dL (74-104); HDL CHOLESTEROL 125 mg/dL; LDL CHOLESTEROL,CALCULATED 57 mg/dL; LDL/HDL RATIO 0.5 (<3.6); POTASSIUM 4.1 mmol/L (3.5-4.5); SODIUM 137 mmol/L (135-145); TOTAL PROTEIN 7.7 g/dL (6.4-8.9); TRIGLYCERIDES 121 mg/dL (48-352); VLDL CHOLESTEROL 24 mg/dL
[2023-06-30 11:21] LABS: ESTIMATED AVERAGE GLUCOSE 114 mg/dL (70-100); HEMOGLOBIN A1c% 5.6 % (4.27-6.07)
== END 2023-06-30 08:59 | disposition home or self-care (01) ==
LOC: LAB 08:58
PROVIDERS: ATTEND Internal Medicine
DX: K70.0 Alcoholic fatty liver (principal); E78.5 Hyperlipidemia, unspecified; R73.01 Impaired fasting glucose; R97.20 Elevated prostate specific antigen [PSA]; F41.8 Other specified anxiety disorders
CPT/HCPCS: 36415; 80053; 80061; 82043; 82105; 82570; 83036; 83721; 84153; 84443; 85025

== ENCOUNTER 2023-06-30 11:54 | Emergency (ER) | payer MEDICARE, OTHER ==
--- NOTE | 2023-06-30 14:31 | ED Physician Documentation ---
History of Present Illness - Stated complaint Stated Complaint: L CALF SWELLING/REDENSS/SORE - Chief complaint Chief Complaint: Ext Problem - Additonal information Additional information: 67-year-old male presents emergency department for evaluation of redness and pain on the left lower anterior leg. He noticed it yesterday evening. He had been working in the garden all day. He is concerned that he could have a blood clot. No previous history of DVT or cancers. He is not anticoagulated. Denies any falls or trauma. Denies that he may have bumped it or had trauma otherwise. Review of Systems Constitutional: denies: Fever Nose: reports: Reviewed and negative Throat: reports: Reviewed and negative Cardiac: reports: Reviewed and negative Respiratory: reports: Reviewed and negative Skin: reports: Lesions (redness no swelling anterior left leg) Musculoskeletal: reports: Reviewed and negative PD PAST MEDICAL HISTORY - Past Medical History Cardiovascular: Hypertension, High cholesterol Respiratory: None Neuro: None Endocrine/Autoimmune: None GI: None : None HEENT: Chronic vision loss Psych: None Musculoskeletal: Osteoarthritis Derm: None - Past Surgical History General: Colonoscopy, Other - Present Medications Home Medications: Ambulatory Orders Medication Instructions Recorded Confirmed Atorvastatin [Lipitor] 20 mg PO QPM 06/28/21 06/13/22 Lisinopril [Zestril] 10 mg PO DAILY 06/28/21 06/13/22 Multivitamin 1 each PO DAILY 06/28/21 06/13/22 [place]-3/Dha/Epa/Fish Oil [Fish Oil 4 each PO DAILY 06/28/21 06/13/22 1,000 mg Softgel] Omeprazole 20 mg PO DAILY 06/28/21 06/13/22 buPROPion HCL [Bupropion HCl Sr] 150 mg PO BID 06/28/21 06/13/22 dilTIAZem HCL [Diltiazem 24Hr ER 240 mg PO DAILY 06/28/21 06/13/22 (Xr)] diphenhydrAMINE [Benadryl] 25 mg PO Q4-6H PRN 06/28/21 06/13/22 flaxseed oiL [Flaxseed Oil] 3,000 mg PO DAILY 06/28/21 06/13/22 cephALEXin [Keflex] 500 mg PO Q6H #28 cap 06/30/23 - Allergies Allergies/Adverse Reactions: Allergies Allergy/AdvReac Type Severity Reaction Status Date / Time erythromycin base AdvReac stomach Verified 06/30/23 12:19 pain - Social History Smoking Status: Former smoker (Quit 2 weeks ago. 50 year pack history) PD ED PE NORMAL - General General: Alert and oriented X 3, No acute distress, Well developed/nourished - HEENT HEENT: Atraumatic - Neck Neck: Supple, no meningeal sign - Cardiac Cardiac: RRR, No murmur - Respiratory Respiratory: No respiratory distress, Clear bilaterally - Abdomen Abdomen: Normal bowel sounds, Soft, Non tender - Derm Derm: Normal color, Warm and dry, Other (Erythematous macular patchy erythema left lower anterior davila without induration vesicles or drainage. Quite tender to touch. No posterior calf pain tenderness. 2+ DP pulses bilaterally.) - Extremities Extremities: No: No edema, No calf tenderness / cord - Neuro Neuro: Alert and oriented X 3 Eye Opening: Spontaneous Motor: Obeys Commands Verbal: Oriented GCS Score: 15 Results - Vitals Vitals: Vital Signs - 24 hr 06/30/23 12:16 Temperature 36.5 C Heart Rate 84 Respiratory 15 Rate Blood Pressure 128/79 O2 Saturation 96 Oxygen O2 Source Room air - Rads (name of study) left leg US Relevant Findings:: Final report received (negative for DVT) PD Medical Decision Making - ED course Complexity details: reviewed results, re-evaluated patient, considered differential, d/w patient ED course: 67-year-old male presents emergency department for evaluation of acute left lower anterior leg redness and pain. It began yesterday in the evening after working in the garden. Denies any falls trauma or open skin lesions. No history of similar. He did not have any leg swelling or posterior calf tenderness but his concern was that of a possible DVT despite risk factors. Subsequently here in the emergency department ultrasound was completed that showed no evidence of DVT. Clinically on exam the isolated erythema is most consistent with bacterial skin infection cellulitis/erysipelas. There is no drainage or wounds to culture. Patient will be started on Keflex Discussed with him the usual emergent return precautions for failure symptoms to resolve. Departure - Departure Disposition: 01 Home, Self Care Clinical Impression: Cellulitis of left leg without foot Condition: Stable Record reviewed to determine appropriate education?: Yes Instructions: Cellulitis Dc Prescriptions: cephALEXin [Keflex] 500 mg PO Q6H #28 cap Comments: Sebastian cormier ultrasound of your leg did not show a blood clot. As discussed at the bedside your redness and pain is most consistent with a bacterial skin infection known as cellulitis or even a different type of cellulitis called erysipelas. The treatment for this is antibiotics. I sent a prescription for Keflex also known as cephalexin to the [facility] in [place]. You will take this 4 times a day for the next week. In general with the first few doses of antibiotics I would expect reduced redness and pain over the next 48 to 72 hours. If you are having worsening symptoms, develop fevers, have vomiting or red streaking you should return immediately to the ER. As always please discuss any emergency department visit with your primary care doctor. Forms: PCP List
[2023-06-30] MEDS ORDERED: cephALEXin 250 MG CAPSULE PO STA (15:03)
--- NOTE | 2023-06-30 15:41 | Ultrasound Report ---
PROCEDURE: Duplex Ext Veins Left INDICATIONS: pain, redness, swelling TECHNIQUE: Real-time imaging, as well as color and pulse Doppler interrogation, were performed of the lower extr emity deep veins from the inguinal ligament to the popliteal fossa. Attempted visualization of the ca lf veins was performed. COMPARISON: None. FINDINGS: The deep veins are normally compressible, and free of intraluminal thrombus. Color and pu lse Doppler demonstrate normal phasic intraluminal flow. There is normal augmentation response to di stal compression maneuver. IMPRESSION: No deep venous thrombosis of the visualized lower extremity. Reviewed by: Morgan Crisostomo MD on 06/30/2023 3:39 PM PDT Approved by: Morgan Crisostomo MD on 06/30/2023 3:39 PM PDT Station ID: [id number]
[2023-06-30 16:00] VITALS: BP 130/82; O2SAT 98
== END 2023-06-30 15:46 | disposition home or self-care (01) ==
LOC: ED 11:54
DX: L03.116 Cellulitis of left lower limb (principal); Z87.891 Personal history of nicotine dependence; K70.0 Alcoholic fatty liver; E78.5 Hyperlipidemia, unspecified; R73.01 Impaired fasting glucose; R97.20 Elevated prostate specific antigen [PSA]; F41.8 Other specified anxiety disorders
CPT/HCPCS: 36415; 80053; 80061; 82043; 82105; 82570; 83036; 84443; 85025; 93971; 99283; 99284; A9270; 83721

== ENCOUNTER 2023-11-04 09:06 | Outpatient (CLI) | payer MEDICARE, OTHER ==
[2023-11-04 09:58] LABS: BASOPHILS % (AUTO) 0.9 %; EOSINOPHILS # (AUTO) 0.2 10^3/uL (0.0-0.7); EOSINOPHILS % (AUTO) 4.4 %; LYMPHOCYTES # (AUTO) 1.7 10^3/uL (1.5-3.5); MEAN CORPUSCULAR HEMOGLOBIN 33.5 pg (27.0-31.0); MEAN CORPUSCULAR HGB CONC 32.4 g/dL (32.0-36.0); MEAN CORPUSCULAR VOLUME 103.4 fL (80.0-94.0); MONOCYTES # (AUTO) 0.5 10^3/uL (0.0-1.0); MONOCYTES % (AUTO) 10.9 %; NEUTROPHILS # (AUTO) 2.1 10^3/uL (1.5-6.6); NEUTROPHILS % (AUTO) 45.8 %; PLT - PLATELET COUNT 138 10^3/uL (130-450); RED BLOOD COUNT 3.58 10^6/uL (4.70-6.10); WHITE BLOOD COUNT 4.6 x10^3/uL (4.8-10.8)
[2023-11-04 10:14] LABS: ALBUMIN 4.1 g/dL (3.2-5.5); ALBUMIN/GLOBULIN RATIO 1.5 (1.0-2.2); BILIRUBIN,TOTAL 0.6 mg/dL (0.2-1.0); CALCIUM 9.2 mg/dL (8.5-10.3); CREATININE 1.1 mg/dL (0.6-1.3); POTASSIUM 3.9 mmol/L (3.5-4.5); TOTAL PROTEIN 6.9 g/dL (6.4-8.9)
[2023-11-04 14:30] LABS: ESTIMATED AVERAGE GLUCOSE 117 mg/dL (70-100); HEMOGLOBIN A1c% 5.7 % (4.27-6.07)
== END 2023-11-04 09:07 | disposition home or self-care (01) ==
LOC: LAB 09:06
PROVIDERS: ATTEND Internal Medicine
DX: K70.0 Alcoholic fatty liver (principal); R73.01 Impaired fasting glucose
CPT/HCPCS: 36415; 80053; 82105; 83036; 85025

== ENCOUNTER 2023-12-11 08:49 | Outpatient (CLI) | payer MEDICARE, OTHER ==
--- NOTE | 2023-12-11 17:32 | Ultrasound Report ---
PROCEDURE: Abdomen Complete INDICATIONS: ALCOHOLIC FATTY LIVER TECHNIQUE: Real-time scanning was performed of the abdominal and retroperitoneal organs, with image documentatio n. COMPARISON: Abdominal ultrasound 09/07/2020 FINDINGS: Liver: Liver is normal in size and diffusely increased in echogenicity. A cyst is seen in the left h epatic lobe measuring up to 1.0 cm. Hepatopetal flow seen in the main portal vein. Coarsened liver ec hotexture is noted. Gallbladder: The gallbladder appears normal without gallstones or gallbladder wall thickening. There is no pericholecystic fluid. Sonographic Easton sign is negative. Biliary ducts: Intrahepatic bile ducts are non-dilated. Extrahepatic bile duct caliber measures 4 m m. Normal is 6-7 mm or less in diameter, or 10 mm or less post-cholecystectomy. Pancreas: Visualized portions of the pancreas are sonographically normal. Spleen: Spleen is normal in size and homogeneous in echotexture. Kidneys: Kidneys are normal in size and echotexture. Right kidney measures 10.0 cm long; left kidne y measures 9.6 cm long. No hydronephrosis or nephrolithiasis. No solid masses. No complex renal cys tic lesions which require follow-up. Aorta: Visualized aorta is normal in caliber at less than 3 cm. Iliacs: Proximal common iliac arteries are normal in caliber at less than 2.5 cm. IVC: Intrahepatic inferior vena cava is patent. Miscellaneous: No free abdominal fluid. IMPRESSION: Diffusely increased hepatic echogenicity is nonspecific, but most commonly encountered in the setting of hepatic steatosis. However, other causes of hepatocellular disease are not excluded. Recommend cl inical correlation. Reviewed by: Morgan Crisostomo MD on 12/11/2023 5:30 PM PST Approved by: Morgan Crisostomo MD on 12/11/2023 5:30 PM PST Station ID: [id number]
== END 2023-12-11 08:50 | disposition home or self-care (01) ==
LOC: DI 08:49
PROVIDERS: ATTEND Internal Medicine
DX: K70.0 Alcoholic fatty liver (principal)

== ENCOUNTER 2024-04-30 08:12 | Outpatient (CLI) | payer MEDICARE, OTHER ==
[2024-04-30 08:27] LABS: BASOPHILS % (AUTO) 0.9 %; EOSINOPHILS # (AUTO) 0.2 10^3/uL (0.0-0.7); EOSINOPHILS % (AUTO) 5.7 %; HCT - HEMATOCRIT 35.7 % (42.0-52.0); HGB - HEMOGLOBIN 11.8 g/dL (14.0-18.0); LYMPHOCYTES # (AUTO) 1.4 10^3/uL (1.5-3.5); MEAN CORPUSCULAR HGB CONC 33.1 g/dL (32.0-36.0); MEAN CORPUSCULAR VOLUME 105.9 fL (80.0-94.0); MONOCYTES # (AUTO) 0.5 10^3/uL (0.0-1.0); MONOCYTES % (AUTO) 10.6 %; NEUTROPHILS # (AUTO) 2.1 10^3/uL (1.5-6.6); NEUTROPHILS % (AUTO) 48.6 %; PLT - PLATELET COUNT 133 10^3/uL (130-450); RED BLOOD COUNT 3.37 10^6/uL (4.70-6.10); RED CELL DISTRIBUTION WIDTH 14.6 % (12.0-15.0); WHITE BLOOD COUNT 4.2 x10^3/uL (4.8-10.8)
[2024-04-30 08:45] LABS: ALBUMIN 4.1 g/dL (3.2-5.5); ALBUMIN/GLOBULIN RATIO 1.5 (1.0-2.2); BILIRUBIN,TOTAL 0.5 mg/dL (0.2-1.0); CALCIUM 9.3 mg/dL (8.5-10.3); POTASSIUM 3.6 mmol/L (3.5-4.5); TOTAL PROTEIN 6.8 g/dL (6.4-8.9)
== END 2024-04-30 08:13 | disposition home or self-care (01) ==
LOC: LAB 08:12
PROVIDERS: ATTEND Internal Medicine
DX: K70.0 Alcoholic fatty liver (principal)
CPT/HCPCS: 36415; 80053; 82105; 85025